=== PATIENT | female | born 1970 | race Caucasian/White ===

== ENCOUNTER 2017-04-21 00:17 | Emergency (ER) | payer SELFPAY ==
[~2017-04-21] VITALS: Ht 167.6 cm; Wt 65.0 kg
[2017-04-21] MEDS ORDERED: ONDANSETRON HCL 4MG/2ML VIAL IV STA (01:17)
[2017-04-21] MEDS ORDERED: SODIUM CHLORIDE 0.9% 1,000 ML IV ONE (01:17)
[2017-04-21 01:40] LABS: BASOPHILS % 0.3 % (0.0-2.0); EOSINOPHILS % 0.3 % (0.0-5.0); HEMATOCRIT. 33.8 % (36.0-48.0); HEMOGLOBIN. 11.4 g/dL (12.0-16.0); LYMPHOCYTES % 11.8 % (20.0-50.0); MEAN CORPUSCULAR HEMOGLOBIN 32.8 pg (28.0-32.0); MEAN CORPUSCULAR VOLUME 97.5 fL (81.0-99.0); MONOCYTES % 5.4 % (2.0-8.0); NEUTROPHILS % 82.2 % (40.0-76.0); PLATELET 182 x1000/uL (130-400); RED BLOOD CELL COUNT 3.46 mill/uL (4.2-5.4)
[2017-04-21 01:47] LABS: HCG SCREEN NEGATIVE
[2017-04-21 01:51] LABS: CARBON DIOXIDE 28 mEq/L (21-32); CHLORIDE 107 mEq/L (98-107)
[2017-04-21 04:34] VITALS: BP 105/67
== END 2017-04-21 04:42 | disposition home or self-care (01) ==
LOC: ER 00:20
DX: F12.929 Cannabis use, unspecified with intoxication, unspecified (principal); F41.9 Anxiety disorder, unspecified
CPT/HCPCS: 36415; 80048; 84703; 85025; 96361; 96374; 99284; J2405; J7030; Z7610